=== PATIENT | male | born 1950 | race Caucasian/White ===

== ENCOUNTER 2016-05-25 13:58 | Outpatient (CLI) | payer MEDICARE, OTHER | END 2016-05-25 13:59 | disposition home or self-care (01) | DX: K92.2 Gastrointestinal hemorrhage, unspecified (principal) ==

== ENCOUNTER 2016-06-25 14:45 | Outpatient (CLI) | payer MEDICARE, OTHER | END 2016-06-25 14:46 | disposition home or self-care (01) | DX: J44.9 Chronic obstructive pulmonary disease, unspecified (principal); F32.9 Major depressive disorder, single episode, unspecified; K59.00 Constipation, unspecified; N40.1 Benign prostatic hyperplasia with lower urinary tract symptoms; R33.8 Other retention of urine; F41.9 Anxiety disorder, unspecified; Z79.891 Long term (current) use of opiate analgesic; Z99.81 Dependence on supplemental oxygen; Z79.52 Long term (current) use of systemic steroids; Z51.5 Encounter for palliative care ==

== ENCOUNTER 2016-07-09 13:15 | Outpatient (CLI) | payer MEDICARE, OTHER | END 2016-07-09 13:16 | disposition home or self-care (01) | DX: D50.9 Iron deficiency anemia, unspecified (principal) ==

== ENCOUNTER 2016-09-24 08:00 | Outpatient (CLI) | payer MEDICARE, OTHER ==
[2016-09-24 14:09] LABS: BASOPHILS # (AUTO) 0.1 10^3/uL (0.0-0.1); BASOPHILS % (AUTO) 0.6 %; EOSINOPHILS # (AUTO) 0.2 10^3/uL (0.0-0.7); EOSINOPHILS % (AUTO) 1.5 %; HCT - HEMATOCRIT 37.5 % (42.0-52.0); HGB - HEMOGLOBIN 12.1 g/dL (14.0-18.0); LYMPHOCYTES # (AUTO) 0.9 10^3/uL (1.5-3.5); LYMPHOCYTES % (AUTO) 8.3 %; MEAN CORPUSCULAR HEMOGLOBIN 27.4 pg (27.0-31.0); MEAN CORPUSCULAR HGB CONC 32.2 g/dL (32.0-36.0); MEAN PLATELET VOLUME 8.2 fL (7.4-11.4); MONOCYTES # (AUTO) 0.5 10^3/uL (0.0-1.0); MONOCYTES % (AUTO) 4.7 %; NEUTROPHILS # (AUTO) 9.7 10^3/uL (1.5-6.6); NEUTROPHILS % (AUTO) 84.9 %; RED BLOOD COUNT 4.42 10^6/uL (4.70-6.10); RED CELL DISTRIBUTION WIDTH 16.1 % (12.0-15.0); UNCORRECTED WHITE BLOOD COUNT 11.4 x10^3/uL; WHITE BLOOD COUNT 11.4 x10^3/uL (4.8-10.8)
== END 2016-09-24 08:01 ==
LOC: LAB.R 08:00
PROVIDERS: ATTEND Internal Medicine
DX: D50.9 Iron deficiency anemia, unspecified (principal)
CPT/HCPCS: 82728; 85025

== ENCOUNTER 2016-10-09 15:15 | Outpatient (CLI) | payer MEDICARE, OTHER ==
--- NOTE | 2016-10-13 06:41 | CONSULTATION NOTE ---
DATE OF CONSULTATION: 10/09/2016 00:00:00 REQUESTING PROVIDER: Dr. Panchal TIME OF VISIT: 1515 to 1600 TOPIC: Followup palliative care consult. Thank you, Dr. Panchal, for asking the palliative care consult service to provide support for your patie nt. I am seeing him in his home setting secondary to considerable taxing effort for him to leave the home, as well as provide evaluation in the context of his home environment and counseling. BRIEF HISTORY OF PRESENT ILLNESS INTERVAL UPDATE: This is a feisty 66-year-old gentleman who has antonina re end-stage COPD, oxygen dependent, with functional limitations related to his dyspnea. Overall, he has been doing a little bit better. He has baseline dyspnea; on a scale from 1 to 10, probably rates baseline about a 6/10. He is managing with his Combivent 3-4 times a day, as well as albuterol 3-4 ti mes. He uses the MS immediate release 15 mg 1-2 times a day appropriately for activity tolerance. He has continued to remain somewhat stable, much to his surprise. He does report his oxygen concentrator went out on him. He had been outside in his shop and his oxygen got down to 78%. He was fearful he w as not going to make it back to the house. We did discuss in the context of safety perhaps about gett ing a [employer]. At this point in time he remains hesitant, but will consider it. The other symptom I am following is his depression. Currently, he is on sertraline 50 mg daily. He do es feel like with good change in weather sees an improvement, using his light therapy as well as seas on change he is doing quite well. Denies any persistent or pervasive negative thoughts. He does get d iscouraged at times, but is setting regular goals and, in fact, is planning a cruise to [place]. He is looking forward to this and will need some assistance as far as managing the transition for getting oxygen orders. I have done this recently, told him to feel free to contact myself if he has any probl ems. They are considering some short trips with his RV. He does appear to be able to tolerate this because he is able to take frequent rests and pace his activities. SYMPTOM BURDEN: He continues to struggle with intermittent osteoarthritic pain, particularly with the weather changes. Says he has used some acetaminophen, is staying away from the ibuprofen because of his decreased counts blood counts and hx of GI bleed. He denies excessive fatigue. No nausea. His eleonora etite has been good. His weight has been neutral at 182. He still has some intermittent anxiety. He d oes perceive currently overall his quality of life is quite acceptable and is quite surprised that he is still here, but pleased. MEDICATION ALLERGIES 1. CODEINE. 2. POSSIBLY IRON. MEDICATIONS 1. Combivent 2 puffs q.4 hours p.r.n. 2. Omeprazole 40 mg sustained release daily. 3. Valsartan/hydrochlorothiazide 160/25 mg daily. 4. Morphine sulfate 15 mg 1 tab q.4h. p.r.n. breathlessness. 5. Ipratropium bromide/albuterol sulfate 0.5 mg/2 mg/mL with budesonide 0.25 mg 2 mL 4 times a day as needed, not currently using. 6. O2 at 3 liters continuously. 7. Tussin DM 10 mL q.4h. p.r.n. 8. Marijuana edibles p.r.n. anxiety or breathlessness. 9. Albuterol inhaler 2 puffs q.4h. p.r.n. 10. Sertraline 50 mg daily. 11. Prednisone 10 mg daily. 12. MiraLax 17 grams daily as needed. 13. Senna 2 tabs p.r.n. constipation. REVIEW OF SYSTEMS: Denies any difficulty with swallowing. Has had trouble with loose teeth. CARDIOVASCULAR: Denies any chest pain or GERD symptoms. Does have exertional dyspnea. RESPIRATORY: No change in cough or sputum production. Shortness of breath remains problematic, but co ntrolled with above current interventions. GASTROINTESTINAL: The patient uses senna every other day with good control of his constipation. GENITOURINARY: Denies any difficulty. MUSCULOSKELETAL: Does report had a little flare of gout in his right toe, took a couple extra prednis one and feels like that was addressed, he is back to his baseline and does complain of intermittent s tiffness. No weakness other than his baseline. INTEGUMENTARY: Denies any rash or skin changes. NEUROLOGIC: Denies any dizziness, memory problems, numbness, tingling. PSYCHIATRIC: As above. Does have some intermittent anxiety. ENDOCRINE: No history of hypothyroidism or diabetes. HEMATOLOGIC/IMMUNOLOGIC: His last ferritin level was 17.9 and his hemoglobin was 12.1 with hematocrit of 37.5, his white count 11.4, which is around his baseline, so it is remaining stable. His PCP requ yenyd he try and take the iron a couple of times a week. PHYSICAL EXAMINATION GENERAL: The patient is alert and voice is modulated, making good eye contact. He is joking some. He is willing to talk about his psychosocial and physical concerns, noting that he has returned to havin g his drink in the evenings daily. EYES: Normal on inspection, slight periorbital edema. ENT: His mucous membranes are moist. NECK: Trachea midline. No JVD. RESPIRATORY: His breath sounds are quite diminished throughout. No crackles, wheezes or rhonchi. CARDIOVASCULAR: His temperature is 98.8, O2 saturations on 3 liters are 96%, pulse at 72, blood press ure 132/68. ABDOMEN: Quite rounded, firm, nontender. SKIN: No signs of rash. Color is slightly pale. EXTREMITIES: No swelling noted, is able to move all of his extremities without difficulty. PALLIATIVE CARE DISCUSSION: Who was present: Myself and the patient. Counseling provided regarding fe elings of vulnerability with this episode of low sats and oxygen coming off. He does realize he is st ill living with a serious illness and that each day is something to be grateful for. He is looking fo rward to his trip with his , and some smaller outings through the summer. He does feel like his d epression is being managed currently, is able to set goals, is able to participate in household tasks as far as cooking dinner, is able to bathe, he is sleeping in his bed, and so many things that are i mproved and are satisfying to him. IMPRESSION: This is a 66-year-old gentleman with severe end-stage chronic obstructive pulmonary disea se. Currently his symptoms are controlled, with improved quality of life. Will continue his current t reatment plan both for his depression and dyspnea. RECOMMENDATIONS/COUNSELING DONE 1. Dyspnea. Reviewed the patient's current regimen and use of morphine. He is using it appropriately. Did discuss safety issues around opioid safety in the home, is able to use this as a tool for his qu ality of life. Did provide him a new prescription of MS 15 mg immediate release, 120 mg tablets. Bakari davis has been without any exacerbation and feels like he is quite grateful. 2. Depression, in remission. The patient is doing fairly well currently on his sertraline, cognitive behavioral approach, and counseling. 3. Constipation, currently controlled. The patient is taking his bowel meds appropriately. 4. Anemia, unspecified. Counseling regarding iron rich foods. TIME SPENT: Forty-five minutes with greater than 50% of this done in counseling regarding depression and anxiety management, dyspnea, and anticipatory guidance. Given his status, is doing quite well. We did agreed to meet again after his trip, it should be early December, unless he has another exacerbati on or his symptoms are worsening. JOB #: [id number] [facility] JOB #:[id number]
== END 2016-10-09 15:16 | disposition home or self-care (01) ==
LOC: PC 15:15
PROVIDERS: ATTEND Nurse Practitioner Adult Health
DX: Z51.5 Encounter for palliative care (principal); J44.9 Chronic obstructive pulmonary disease, unspecified; F32.9 Major depressive disorder, single episode, unspecified; K59.00 Constipation, unspecified; D64.9 Anemia, unspecified; F41.9 Anxiety disorder, unspecified; Z99.81 Dependence on supplemental oxygen; Z79.891 Long term (current) use of opiate analgesic; Z79.52 Long term (current) use of systemic steroids
CPT/HCPCS: 99349

== ENCOUNTER 2016-10-28 10:14 | Outpatient (CLI) | payer MEDICARE, OTHER ==
[2016-10-28 10:48] LABS: BASOPHILS # (AUTO) 0.1 10^3/uL (0.0-0.1); BASOPHILS % (AUTO) 0.9 %; EOSINOPHILS # (AUTO) 0.3 10^3/uL (0.0-0.7); EOSINOPHILS % (AUTO) 2.2 %; HCT - HEMATOCRIT 36.8 % (42.0-52.0); HGB - HEMOGLOBIN 11.9 g/dL (14.0-18.0); LYMPHOCYTES # (AUTO) 0.8 10^3/uL (1.5-3.5); LYMPHOCYTES % (AUTO) 6.7 %; MEAN CORPUSCULAR HEMOGLOBIN 27.8 pg (27.0-31.0); MEAN CORPUSCULAR HGB CONC 32.3 g/dL (32.0-36.0); MEAN CORPUSCULAR VOLUME 86.2 fL (80.0-94.0); MEAN PLATELET VOLUME 7.1 fL (7.4-11.4); MONOCYTES # (AUTO) 0.6 10^3/uL (0.0-1.0); MONOCYTES % (AUTO) 5.7 %; NEUTROPHILS # (AUTO) 9.6 10^3/uL (1.5-6.6); NEUTROPHILS % (AUTO) 84.5 %; RED BLOOD COUNT 4.26 10^6/uL (4.70-6.10); RED CELL DISTRIBUTION WIDTH 17.1 % (12.0-15.0); UNCORRECTED WHITE BLOOD COUNT 11.4 x10^3/uL; WHITE BLOOD COUNT 11.4 x10^3/uL (4.8-10.8)
== END 2016-10-28 10:15 | disposition home or self-care (01) ==
LOC: LAB 10:14
PROVIDERS: ATTEND Internal Medicine
DX: K92.1 Melena (principal)
CPT/HCPCS: 36415; 85025; 86850; 86900; 86901

== ENCOUNTER 2016-10-30 08:02 | Outpatient (CLI) | payer MEDICARE, OTHER ==
[2016-10-30 08:24] LABS: BASOPHILS # (AUTO) 0.1 10^3/uL (0.0-0.1); BASOPHILS % (AUTO) 1.4 %; EOSINOPHILS # (AUTO) 0.5 10^3/uL (0.0-0.7); EOSINOPHILS % (AUTO) 5.5 %; HCT - HEMATOCRIT 37.2 % (42.0-52.0); HGB - HEMOGLOBIN 12.1 g/dL (14.0-18.0); LYMPHOCYTES # (AUTO) 1.6 10^3/uL (1.5-3.5); LYMPHOCYTES % (AUTO) 17.7 %; MEAN CORPUSCULAR HEMOGLOBIN 27.9 pg (27.0-31.0); MEAN CORPUSCULAR HGB CONC 32.5 g/dL (32.0-36.0); MEAN CORPUSCULAR VOLUME 85.9 fL (80.0-94.0); MEAN PLATELET VOLUME 7.3 fL (7.4-11.4); MONOCYTES # (AUTO) 1.1 10^3/uL (0.0-1.0); MONOCYTES % (AUTO) 11.6 %; NEUTROPHILS # (AUTO) 5.8 10^3/uL (1.5-6.6); NEUTROPHILS % (AUTO) 63.8 %; RED BLOOD COUNT 4.33 10^6/uL (4.70-6.10); UNCORRECTED WHITE BLOOD COUNT 9.1 x10^3/uL; WHITE BLOOD COUNT 9.1 x10^3/uL (4.8-10.8)
== END 2016-10-30 08:03 | disposition home or self-care (01) ==
LOC: LAB 08:02
PROVIDERS: ATTEND Internal Medicine
DX: K92.2 Gastrointestinal hemorrhage, unspecified (principal)
CPT/HCPCS: 36415; 85025

== ENCOUNTER 2017-01-05 16:00 | Outpatient (CLI) | payer MEDICARE, OTHER ==
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
== END 2017-01-05 16:01 | disposition home or self-care (01) ==
LOC: PC 16:00
PROVIDERS: ATTEND Nurse Practitioner Adult Health
DX: Z51.5 Encounter for palliative care (principal); J44.1 Chronic obstructive pulmonary disease with (acute) exacerbation; F32.9 Major depressive disorder, single episode, unspecified; F41.9 Anxiety disorder, unspecified; K59.03 Drug induced constipation; T40.2X5A Adverse effect of other opioids, initial encounter; Z99.81 Dependence on supplemental oxygen; Z79.891 Long term (current) use of opiate analgesic; Z66 Do not resuscitate
CPT/HCPCS: 99349

== ENCOUNTER 2017-01-25 12:29 | Outpatient (CLI) | payer MEDICARE, OTHER ==
[2017-01-25 13:06] LABS: BASOPHILS # (AUTO) 0.1 10^3/uL (0.0-0.1); BASOPHILS % (AUTO) 1.2 %; EOSINOPHILS # (AUTO) 0.2 10^3/uL (0.0-0.7); EOSINOPHILS % (AUTO) 1.9 %; HCT - HEMATOCRIT 36.5 % (42.0-52.0); HGB - HEMOGLOBIN 11.6 g/dL (14.0-18.0); LYMPHOCYTES # (AUTO) 0.7 10^3/uL (1.5-3.5); LYMPHOCYTES % (AUTO) 6.2 %; MEAN CORPUSCULAR HEMOGLOBIN 26.7 pg (27.0-31.0); MEAN CORPUSCULAR HGB CONC 31.7 g/dL (32.0-36.0); MEAN CORPUSCULAR VOLUME 84.1 fL (80.0-94.0); MEAN PLATELET VOLUME 7.1 fL (7.4-11.4); MONOCYTES # (AUTO) 0.6 10^3/uL (0.0-1.0); MONOCYTES % (AUTO) 5.7 %; NEUTROPHILS # (AUTO) 9.4 10^3/uL (1.5-6.6); RED BLOOD COUNT 4.34 10^6/uL (4.70-6.10)
[2017-01-25 13:26] LABS: CALCIUM 9.3 mg/dL (8.5-10.3); CREATININE 1.1 mg/dL (0.6-1.2); POTASSIUM 3.8 mmol/L (3.5-5.0)
== END 2017-01-25 12:30 | disposition home or self-care (01) ==
LOC: LAB 12:29
PROVIDERS: ATTEND Internal Medicine
DX: K92.2 Gastrointestinal hemorrhage, unspecified (principal); J44.9 Chronic obstructive pulmonary disease, unspecified
CPT/HCPCS: 36415; 80048; 82728; 85025

== ENCOUNTER 2017-04-28 08:00 | Outpatient (CLI) | payer MEDICARE, OTHER ==
[2017-04-28 20:26] LABS: BASOPHILS # (AUTO) 0.1 10^3/uL (0.0-0.1); EOSINOPHILS # (AUTO) 0.3 10^3/uL (0.0-0.7); EOSINOPHILS % (AUTO) 4.1 %; HCT - HEMATOCRIT 41.4 % (42.0-52.0); HGB - HEMOGLOBIN 13.1 g/dL (14.0-18.0); LYMPHOCYTES # (AUTO) 1.3 10^3/uL (1.5-3.5); LYMPHOCYTES % (AUTO) 15.8 %; MEAN CORPUSCULAR HEMOGLOBIN 28.9 pg (27.0-31.0); MEAN CORPUSCULAR HGB CONC 31.7 g/dL (32.0-36.0); MEAN CORPUSCULAR VOLUME 91.3 fL (80.0-94.0); MEAN PLATELET VOLUME 8.1 fL (7.4-11.4); MONOCYTES # (AUTO) 0.9 10^3/uL (0.0-1.0); MONOCYTES % (AUTO) 10.9 %; NEUTROPHILS # (AUTO) 5.7 10^3/uL (1.5-6.6); NEUTROPHILS % (AUTO) 68.2 %; NUCLEATED RED BLOOD CELLS AUTO 0.1 /100WBC; RED BLOOD COUNT 4.54 10^6/uL (4.70-6.10); UNCORRECTED WHITE BLOOD COUNT 8.4 x10^3/uL; WHITE BLOOD COUNT 8.4 x10^3/uL (4.8-10.8)
== END 2017-04-28 08:01 | disposition home or self-care (01) ==
LOC: LAB.R 08:00
PROVIDERS: ATTEND Internal Medicine
DX: K92.2 Gastrointestinal hemorrhage, unspecified (principal)
CPT/HCPCS: 82728; 85025

== ENCOUNTER 2017-06-28 15:45 | Outpatient (CLI) | payer MEDICARE, OTHER ==
--- NOTE | 2017-06-28 20:49 | CONSULTATION NOTE ---
Palliative Care Follow Up - Referral Referring Provider: Dr. Panchal Time of Visit: [id number] Referral setting: Home (Patient seen in her home setting seconds considerable and taxing effort for the patient leave the home secondary to his severe dyspnea and poor activity tolerance) Referral Reason: Advanced COPD/Depression - Information Sources Records reviewed: Previous records reviewed History/Review of Systems obtained from: Patient, Family (Petrona joined us for the visit) Exam limitations: No limitations - History of Present Illness Update Brief HPI Update: This is a ronald 67-year-old gentleman with advanced COPD, who is oxygen dependent, with noted functional limitations related to his dyspnea. He continues to have fluctuating status as far as his shortness of breath, good and bad days, and intermittent panic attacks. These have dramatically improved though, patient is managing both his anxiety and his dyspnea with the use of as needed morphine sulfate 15 mg tablets. He is finding taking it at about 2 AM when he gets up to the bathroom, this is when he gets quite distressed, and then again around 9 or 10 to be able to bathe appears to be a good pattern. On his states that he is not feeling quite as well he does take a third tablet with good relief. He currently is remaining weight neutral between 1 7172. His biggest complaint is been an increase in intermittent constipation. He is currently off the iron as he was unable to tolerate it, his ferritin in April was 28.4. He has not had any episodes of flu or cold this winter, and when he is feeling better he does get out in his truck and goes with many on [place] this is maybe once or twice a month. For management of his COPD he continues on the prednisone 10 mg daily, he is using the Combivent 3-4 times a day, supplemented by albuterol 2 puffs about 3 times a day. He is only using the nebulizer with the Pulmicort and L sputum well about 1 time a day. Overall he feels satisfied with his current quality of life, and feels his depression is currently controlled. Social History - Living Situation Living arrangement: At home Living Situation: With spouse/s.o. (Petrona is his main support, she does work during the day, she tries to be flexible though if he is having a bad day. She herself is getting ready for surgery and will need some time off related to this. He is hoping he can be supportive of her during this time.) Medications/Allergies - Medications Home Medications: Ambulatory Orders Medication Instructions Recorded Confirmed Ipratropium/Albuterol [Combivent 2 puffs IH Q4H PRN 06/17/14 06/28/17 Respimat] Morphine Ir [Ms Ir] 15 mg PO Q4HR PRN 03/15/16 06/28/17 Sertraline [Zoloft] 50 mg PO DAILY 03/15/16 06/28/17 Budesonide [Pulmicort] 0.5 mg NEB DAILY 03/16/16 06/28/17 Valsartan/Hydrochlorothiazide 160.25 mg PO DAILY 03/16/16 06/28/17 [Diovan Hct 160-25 mg Tablet] predniSONE [Deltasone] 10 mg PO DAILYWM 03/16/16 06/28/17 traZODone [Desyrel] 50 mg PO HS 03/16/16 06/28/17 Albuterol Sulf [Ventolin Hfa 2 puffs INH Q4HR PRN 01/05/17 06/28/17 Inhaler] Dextromethorphan HBr [Tussin Cough] 10 ml PO Q4HR PRN 01/05/17 06/28/17 Esomeprazole Magnesium [Nexium] 40 mg PO DAILY 01/05/17 06/28/17 Ipratropium/Albuterol Sulfate 1 amp INH TID PRN 01/05/17 06/28/17 [Iprat-Albut 0.5-3(2.5) mg/3 ml] Polyethylene Glycol 3350 [Miralax] 17 gm PO DAILY PRN 01/05/17 06/28/17 Senna [Senokot] 17.2 gm PO BID 01/05/17 06/28/17 - Allergies Allergies/Adverse Reactions: Allergies Allergy/AdvReac Type Severity Reaction Status Date / Time codeine AdvReac Unknown Verified 04/01/16 13:16 Review of Systems - Constitutional Constitutional: reports: Fatigue, Weight stable (170-172) - Ears, Nose & Throat Ears, Nose & Throat: reports: Hearing loss (mild), Postnasal drainage, Dental decay - Cardiovascular Cardiovascular: reports: Exertional dyspnea, Decr. exercise tolerance. denies: Chest pain - Respiratory Respiratory: reports: Wheezing (intermittent), SOB at rest, SOB with exertion - Gastrointestinal Gastrointestinal: reports: Constipation, Good appetite. denies: Rectal bleeding , Black stools, Nausea, Reflux/heartburn - Genitourinary Genitourinary: denies: Incontinence - Musculoskeletal Musculoskeletal: reports: Muscle aches, Stiffness, Limited range of motion ( shoulders) - Integumentary Integumentary: reports: Lesions (psoriasis good control currently), Dryness - Neurological Neurological: reports: General weakness - Psychiatric Psychiatric: reports: Depression (well controlled currently), Anxiety (less panic attacks down 2-3 x month) - Endocrine Endocrine: reports: Other (reports intermittent hot flashes/sweating-notes no pattern currently) - Hematologic/Lymphatic Hematologic/Lymphatic: reports: Anemia (improved). denies: Recurrent infections - All Other Systems All Other Systems: reports: Reviewed and negative Physical Exam - Vital Signs Temperature: 98.4 C Pulse Rate: 69 Respiratory Rate: 20 O2 Saturation: 96 (on 3 liters) Blood Pressure: 142/74 - Physical Exam General Appearance: positive: No acute distress, Alert Eyes Bilateral: positive: Normal inspection ENT: positive: No signs of dehydration Neck: positive: No JVD, Trachea midline Cardiovascular: positive: Regular rate & rhythm Respiratory: positive: Diminished throughout, Other (right base decreased;). negative: Wheezes, Rales, Rhonchi Abdomen: positive: Soft, Nml bowel sounds Skin: positive: Pallor, Dryness Extremities: positive: No pedal edema Neurologic/Psychiatric: positive: Oriented x3, Mood/affect nml Palliative Care - POLST Patient has POLST: Yes POLST Status: DNR, Selective Treatment Pain: Pain unchanged, Location (diffuse joint pain; right toe continues to "flare") Tiredness/Fatigue: Moderate (4-6) Drowsiness/Sedation: Mild (1-3) Nausea: None Depression: None Anxiety: Mild (1-3) Dyspnea: Moderate (4-6) Anorexia: None Sleep: Variable sleep pattern Constipation: Yes, Opoid induced, Unmanaged Feelings of wellbeing/Perceived Quality of Life: Good, Acceptable, No change Performance Status: She remains mostly housebound, spends quite a bit of time sitting in the recliner, he is able to do some household tasks. He is currently able to bathe himself independently. I put him at a PPS of 50% - Palliative Care Discussion: Patient feeling quite positive, feels quality of life is acceptable, still has some fluctuating days including "bad days". Both are anxious with Petrona is pending surgery, patient is hoping to be able to provide support. Most of their family is in [place]. Patient has set a goal to take a [place] cruise again in October, this is something that helps him get through the sanderson days. He does feel like using his light box and his current dosing of antidepressant his depression is acceptable. At this point in time relocating to [place] is put on hold pending outcome of [place] surgeries etc. Results - Lab Results Lab results reviewed: Yes Impression and Recommendations - Palliative Care Impression: This is a ronald 67 gentleman who has advanced COPD, has fluctuating good and bad days, currently feels his quality of life is adequate, and his symptom burden low. He does present today with constipation. Palliative care support will continue benefiting from ongoing monitoring and counseling. Will continue to follow until patient appropriate the transition to hospice. Recommendations/Counseling Done: 1. Depression. Patient is currently being managed on his sertraline 50 mg daily and use of his light box. No further adjustments needed today. 2. Constipation. Patient counseled to not take Epson salts with constipation, he is currently only taking senna 2 tabs daily, patient's bowel movements are soft, instructed to take 2 tabs twice daily, with the goal to have a regular bowel movement every day particularly in light of patient's history of rectal bleeding. Patient denies any signs or symptoms of bleeding or hemorrhoids. 3. Advanced COPD. Patient is at high risk for exacerbation and/or recurrent pneumonia. He currently is being managed without any sequela his last few months, he does present as managing appropriately on his current morphine, RX provided for MS 15 mg 1 tab every four hours ad need for acute breathlessness # 120. 4. Advanced care planning. Patient does have YENI ST in place as well as identified Petrona as DPO a. Patient has set a goal for [place] this summer, continues to manage, without any acute infection or decline currently. Will continue to provide palliative care support for symptom management and counseling. Time Spent: 30 minutes with greater than 50% of this regarding counseling regarding symptom management, anticipatory guidance, and family support/counseling with and patient
== END 2017-06-28 15:46 | disposition home or self-care (01) ==
LOC: PC 15:45
PROVIDERS: ATTEND Nurse Practitioner Adult Health
DX: Z51.5 Encounter for palliative care (principal); J44.9 Chronic obstructive pulmonary disease, unspecified; K59.00 Constipation, unspecified; F32.9 Major depressive disorder, single episode, unspecified; D64.9 Anemia, unspecified; Z66 Do not resuscitate
CPT/HCPCS: 99348

== ENCOUNTER 2017-07-15 16:57 | Outpatient (CLI) | payer MEDICARE, OTHER | END 2017-07-15 16:58 | disposition EMS.NT | LOC: EMS 16:57 | PROVIDERS: ATTEND Surgery | DX: M54.2 Cervicalgia (principal); V59.40XA Driver of pick-up truck or van injured in collision with unspecified motor vehicles in traffic accident, initial encounter; Y92.413 State road as the place of occurrence of the external cause ==

== ENCOUNTER 2017-09-01 13:30 | Outpatient (CLI) | payer MEDICARE, OTHER ==
[2017-09-01 13:45] LABS: BASOPHILS # (AUTO) 0.1 10^3/uL (0.0-0.1); BASOPHILS % (AUTO) 0.7 %; EOSINOPHILS # (AUTO) 0.3 10^3/uL (0.0-0.7); HGB - HEMOGLOBIN 13.5 g/dL (14.0-18.0); LYMPHOCYTES # (AUTO) 0.9 10^3/uL (1.5-3.5); LYMPHOCYTES % (AUTO) 8.2 %; MEAN CORPUSCULAR HEMOGLOBIN 30.6 pg (27.0-31.0); MEAN CORPUSCULAR HGB CONC 33.2 g/dL (32.0-36.0); MONOCYTES # (AUTO) 0.7 10^3/uL (0.0-1.0); MONOCYTES % (AUTO) 6.4 %; NEUTROPHILS # (AUTO) 9.2 10^3/uL (1.5-6.6); NEUTROPHILS % (AUTO) 81.7 %; PLT - PLATELET COUNT 286 10^3/uL (130-450); RED BLOOD COUNT 4.41 10^6/uL (4.70-6.10); RED CELL DISTRIBUTION WIDTH 14.8 % (12.0-15.0); WHITE BLOOD COUNT 11.2 x10^3/uL (4.8-10.8)
[2017-09-01 13:57] LABS: ALBUMIN 4.6 g/dL (3.2-5.5); ALBUMIN/GLOBULIN RATIO 1.5 (1.0-2.2); BILIRUBIN,TOTAL 0.7 mg/dL (0.2-1.0); CALCIUM 9.2 mg/dL (8.5-10.3); CREATININE 0.9 mg/dL (0.6-1.2); TOTAL PROTEIN 7.7 g/dL (6.7-8.2)
== END 2017-09-01 13:31 | disposition home or self-care (01) ==
LOC: LAB 13:30
PROVIDERS: ATTEND Internal Medicine
DX: I10 Essential (primary) hypertension (principal); Z79.899 Other long term (current) drug therapy; K92.2 Gastrointestinal hemorrhage, unspecified
CPT/HCPCS: 36415; 80053; 84443; 85025

== ENCOUNTER 2017-09-08 15:45 | Outpatient (CLI) | payer MEDICARE, OTHER ==
--- NOTE | 2017-09-09 06:28 | CONSULTATION NOTE ---
Palliative Care Follow Up - Referral Referring Provider: Dr. Mat Panchal Time of Visit: Friday 09/08 [id number] Referral setting: Home (This is a taxing considerable effort for the patient leave the home secondary to advanced COPD and also to facilitate family conference) Referral Reason: Advanced COPD - Information Sources Records reviewed: Previous records reviewed History/Review of Systems obtained from: Patient, Family ( Petrona present for visit) Exam limitations: No limitations - History of Present Illness Update Brief HPI Update: This is a ronald 67-year-old gentleman with advanced COPD, who is oxygen dependent, with functional limitations related to his dyspnea. He continues have fluctuating status, most recently exacerbation of shortness of breath, fatigue, and depression. Had increased his sertraline, did follow-up with his PCP regarding follow-up with labs, those are within normal limits, though he did have an elevated white count. Patient did self treat with increased dose of prednisone, this improved his wheezing and tightness, his mood is been improved as well. Today I find him with elevated mood, conversant, willing to share his concerns regarding anxiety, depression, and breathlessness. Is setting goals for this summer, does have some sinus congestion responding to psychotropic, lungs are diminished throughout, without wheezes, vital signs are stable. Social History - Living Situation Living arrangement: At home Living Situation: With spouse/s.o. (Petrona works during the day, patient is somewhat isolated has ronald dog Mayra whom keeps him company) Medications/Allergies - Medications Home Medications: Ambulatory Orders Medication Instructions Recorded Confirmed Ipratropium/Albuterol [Combivent 2 puffs IH Q4H PRN 06/17/14 09/09/17 Respimat] Morphine Ir [Ms Ir] 15 mg PO Q4HR PRN 03/15/16 09/09/17 Sertraline [Zoloft] 75 mg PO DAILY 03/15/16 09/09/17 Budesonide [Pulmicort] 0.5 mg NEB DAILY 03/16/16 09/09/17 Valsartan/Hydrochlorothiazide 160.25 mg PO DAILY 03/16/16 09/09/17 [Diovan Hct 160-25 mg Tablet] predniSONE [Deltasone] 20 mg PO DAILYWM 03/16/16 09/09/17 traZODone [Desyrel] 50 mg PO HS 03/16/16 09/09/17 Albuterol Sulf [Ventolin Hfa 2 puffs INH Q4HR PRN 01/05/17 09/09/17 Inhaler] Dextromethorphan HBr [Tussin Cough] 10 ml PO Q4HR PRN 01/05/17 09/09/17 Esomeprazole Magnesium [Nexium] 40 mg PO DAILY 01/05/17 09/09/17 Ipratropium/Albuterol Sulfate 1 amp INH TID PRN 01/05/17 09/09/17 [Iprat-Albut 0.5-3(2.5) mg/3 ml] Polyethylene Glycol 3350 [Miralax] 17 gm PO DAILY PRN 01/05/17 09/09/17 Senna [Senokot] 17.2 gm PO BID PRN 01/05/17 09/09/17 Cetirizine [ZyrTEC] 10 mg PO DAILY 09/09/17 09/09/17 - Allergies Allergies/Adverse Reactions: Allergies Allergy/AdvReac Type Severity Reaction Status Date / Time codeine AdvReac Unknown Verified 04/01/16 13:16 Review of Systems - Constitutional Constitutional: reports: Fatigue (reports increase tiredness for 2-3 weeks; had followed up with Dr. Panchal for labs with anemia stable), Weight stable (167-170) - Eyes Eyes: reports: Vision loss - Ears, Nose & Throat Ears, Nose & Throat: reports: Hearing loss (mild), Nasal congestion (using zytrec with relief; reports increased sinus pressure and congestion with increase pollen count) - Cardiovascular Cardiovascular: reports: Exertional dyspnea, Decr. exercise tolerance. denies: Chest pain - Respiratory Respiratory: reports: Cough (intermittent; dry), SOB with exertion - Gastrointestinal Gastrointestinal: reports: Good appetite ("too good" reviewed increased prednisone most likely culprit). denies: Constipation (managing bowel program) , Rectal bleeding, Black stools, Nausea - Genitourinary Genitourinary: reports: Urgency - Musculoskeletal Musculoskeletal: reports: Muscle aches, Stiffness, Joint pain (intermittent influenced by weather) - Integumentary Integumentary: reports: Dryness - Neurological Neurological: reports: Headache (with sinus pressure) - Psychiatric Psychiatric: reports: Depression (had spoken with patient 08/30 regarding increased symptoms of depression/anxiety patient had increased sertraline to 75 mg per instruction; some benefit and improvement in mood along with better weather and improved function with prednisone "boost") - Hematologic/Lymphatic Hematologic/Lymphatic: reports: Anemia (mild/recent labs good), Recurrent infections (09/01 WBC slightly elevated 11.2 neuts 9.2; patient did not self medicate with AB but did increase prednisone to 20 mg from 10 mg daily with improvement of SOB/wheezing/and energy. Patient "self" regulates reports last dose at 20 mg is tomorrow.) - All Other Systems All Other Systems: reports: Reviewed and negative Physical Exam - Vital Signs Temperature: 97.8 C Pulse Rate: 72 Respiratory Rate: 18 O2 Saturation: 92 (3 liters) Blood Pressure: 132/72 - Physical Exam General Appearance: positive: No acute distress, Alert Eyes Bilateral: positive: Normal inspection ENT: positive: No signs of dehydration Neck: positive: No JVD, Trachea midline Cardiovascular: positive: Regular rate & rhythm Respiratory: positive: Diminished throughout. negative: Wheezes, Rales, Rhonchi Abdomen: positive: Non-tender, Soft, Nml bowel sounds Skin: positive: Dryness Extremities: positive: No pedal edema Neurologic/Psychiatric: positive: Oriented x3, Mood/affect nml Palliative Care - POLST Patient has POLST: Yes POLST Status: DNR, Selective Treatment Pain: Pain unchanged, Location (joint pain; fluctuates) Tiredness/Fatigue: Moderate (4-6) Drowsiness/Sedation: Mild (1-3) Nausea: None Depression: Moderate (4-6) Anxiety: Moderate (4-6) (does describe intermittent panic attacks; less with use of morphine but did have one a couple of weeks ago; very frightening for patient) Dyspnea: Moderate (4-6) (improved back down to 1-2 MS IR 15 mg from 2-3 last week) Anorexia: None Sleep: Variable sleep pattern Constipation: Yes, Opoid induced, Managed Feelings of wellbeing/Perceived Quality of Life: Fair, Acceptable Performance Status: Patient had been more sedentary particularly over winter with cold weather, is looking forward to the nicer weather and being able to do more things. Patient is able to ambulate around home, is limited by his dyspnea. He does have decreased activity tolerance but is independent in his ADLs. They are hoping to plan for a cruise this October, as well as several RV camping trips. - Palliative Care Discussion: Patient does appear to have had exacerbation of his COPD a couple weeks ago, is on prednisone 20 mg daily with some improvement, also had an exacerbation of his depression. 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 and patient are sitting goals, patient remains fairly isolated, but having new dog that has really brightened his days. Results - Lab Results Lab results reviewed: Yes Impression and Recommendations - Palliative Care Impression: This is a 67-year-old gentleman with advanced COPD, with recent exacerbation of his COPD and depression. Currently is improving, though continues to have slow decline, but is still quite satisfied with his current quality of life. Palliative care support continue ongoing monitoring, and counseling for support. Recommendations/Counseling Done: 1.COPD. Patient with recent exacerbation, patient self managed with increased prednisone to 20 mg daily, this is about to be completed. Did review important to follow-up with PCP/palliative care if exacerbation of symptoms to weigh benefits and burdens of self treating with prednisone and/or antibiotics. If patient's breathlessness does not improve, can follow-up with checks x-ray if needed. Patient did not take antibiotics. #2 depression. Patient with recent exacerbation, has increased sertraline to 75 mg per instruction. Does feel improved with the weather, may be early yet to see benefit from increase sertraline but will continue to monitor. Patient without increased side effects. 3. Anxiety. Counseling regarding panic attacks, implementation of relaxation techniques, and etiology. Patient has had less frequency of this, but is quite overwhelmed by them. 4. Advanced care planning. Patient does have Y[facility]I ST in place, is setting goals for this summer with cruise in October. He is hoping for enough energy and support to be able to do intermittent camping trips as well. Time Spent: 30 minutes with greater than 50% of this done in counseling regarding management of COPD, depression, anxiety and anticipatory guidance
== END 2017-09-08 15:46 | disposition home or self-care (01) ==
LOC: PC 15:45
PROVIDERS: ATTEND Nurse Practitioner Adult Health
DX: Z51.5 Encounter for palliative care (principal); J44.9 Chronic obstructive pulmonary disease, unspecified; F32.9 Major depressive disorder, single episode, unspecified; F41.8 Other specified anxiety disorders; F41.0 Panic disorder [episodic paroxysmal anxiety]; Z99.81 Dependence on supplemental oxygen; Z79.891 Long term (current) use of opiate analgesic; Z79.51 Long term (current) use of inhaled steroids; Z79.52 Long term (current) use of systemic steroids; Z66 Do not resuscitate
CPT/HCPCS: 99348

== ENCOUNTER 2017-11-26 12:45 | Outpatient (CLI) | payer MEDICARE, OTHER ==
--- NOTE | 2017-11-26 15:06 | CONSULTATION NOTE ---
Palliative Care Follow Up - Referral Referring Provider: Dr. Mat Panchal Time of Visit: [id number] Referral setting: Home (There is a taxing considerable effort for the patient leave the home secondary to his severe dyspnea and advanced COPD) Referral Reason: [id number] - Information Sources Records reviewed: Previous records reviewed History/Review of Systems obtained from: Patient Exam limitations: No limitations - History of Present Illness Update Brief HPI Update: This is a 67-year-old gentleman with advanced COPD, who is oxygen dependent, with moderate to severe functional limitations related to his dyspnea. He does continue to have fluctuating status, most recently he had been on his [place] cruise, this is been sending been looking forward to. Unfortunately did find his breathlessness, he was feeling quite stressed, and was not feeling well at the time he got home. Over the weekend he did experience a right muscle strain on his friend with some chest discomfort, point tenderness on exam, does not appear to be broken ribs but muscular in origin. Reports on Wednesday he had some problems with his RV, the air conditioning was not working, and was wondering if he did not experience some heat stroke. He also had an exacerbation of his COPD, with increased shortness of breath, denies cough or colored sputum, did himself increase from prednisone 10 mg up to 20 mg, had had a conversation with him yesterday regarding his severity of symptoms and recommended ED evaluation. He took a nap and when he woke up he was feeling somewhat better. We did agree to visit today though for examination. He remains at high risk for recurrent exacerbations and/or/pneumonia. He has had actually done fairly well over the last several months. On exam patient is diminished throughout, but no wheezing, crackles, or rhonchi. His O2 sats are in acceptable range for patient. He does perceive he is improving. He has not increased his inhaler use, he does use his Combivent about 3 times a day, his budineside neb daily, and Albuterol about 3 times a day. He has also using the morphine 50 mg immediate relief about 3 times a day with good relief, during this time. He had increase it up to about 4 times a day. He is present, cooperative, engaged in conversation making good eye contact, does not present with respiratory distress or effort at that visit. Social History - Living Situation Living arrangement: At home Living Situation: With spouse/s.o. Support System: Petrona works full-time, she did stay home yesterday because patient was feeling so poorly. Patient does remain quite isolated, has a ronald dog, and is looking forward to having his RV fixed to be able to do some camping. He reports he just likes to sit in the quiet. Medications/Allergies - Medications Home Medications: Ambulatory Orders Medication Instructions Recorded Confirmed Ipratropium/Albuterol [Combivent 2 puffs IH Q4H PRN 06/17/14 11/26/17 Respimat] Morphine Ir [Ms Ir] 15 mg PO Q4HR PRN 03/15/16 11/26/17 Sertraline [Zoloft] 75 mg PO DAILY 03/15/16 11/26/17 Budesonide [Pulmicort] 0.5 mg NEB DAILY 03/16/16 11/26/17 Valsartan/Hydrochlorothiazide 160.25 mg PO DAILY 03/16/16 11/26/17 [Diovan Hct 160-25 mg Tablet] predniSONE [Deltasone] 20 mg PO DAILYWM 03/16/16 11/26/17 traZODone [Desyrel] 50 mg PO HS 03/16/16 11/26/17 Albuterol Sulf [Ventolin Hfa 2 puffs INH Q4HR PRN 01/05/17 11/26/17 Inhaler] Dextromethorphan HBr [Tussin Cough] 10 ml PO Q4HR PRN 01/05/17 11/26/17 Esomeprazole Magnesium [Nexium] 40 mg PO DAILY 01/05/17 11/26/17 Ipratropium/Albuterol Sulfate 1 amp INH TID PRN 01/05/17 11/26/17 [Iprat-Albut 0.5-3(2.5) mg/3 ml] Polyethylene Glycol 3350 [Miralax] 17 gm PO DAILY PRN 01/05/17 11/26/17 Senna [Senokot] 17.2 gm PO BID PRN 01/05/17 11/26/17 Cetirizine [ZyrTEC] 10 mg PO DAILY 09/09/17 11/26/17 - Allergies Allergies/Adverse Reactions: Allergies Allergy/AdvReac Type Severity Reaction Status Date / Time codeine AdvReac Unknown Verified 04/01/16 13:16 Review of Systems - Constitutional Constitutional: reports: Fatigue, Weight loss (had lost 8 pounds since back from trip/has regained 4 of 8). denies: Fever - Eyes Eyes: reports: Vision loss - Ears, Nose & Throat Ears, Nose & Throat: reports: Hearing loss (mild), Nasal congestion, Dry mouth - Cardiovascular Cardiovascular: reports: Chest pain (not cardiac in nature; pulled muscle right breast area), Exertional dyspnea, Decr. exercise tolerance. denies: Edema - Respiratory Respiratory: reports: SOB at rest, SOB with exertion. denies: Cough, Sputum production - Gastrointestinal Gastrointestinal: reports: Abdominal distention, Good appetite. denies: Constipation, Nausea - Genitourinary Genitourinary: reports: Urgency - Musculoskeletal Musculoskeletal: reports: Muscle pain (right upper breast/throcic pain had occured when "pounding in garden stakes"), Muscle weakness - Integumentary Integumentary: reports: Pruritis - Neurological Neurological: reports: General weakness - Psychiatric Psychiatric: reports: Depression (reports had exacerbation on trip; felt stressed; previous had been doing well) - All Other Systems All Other Systems: reports: Reviewed and negative Physical Exam - Vital Signs Temperature: 97.6 C Pulse Rate: 62 Respiratory Rate: 20 O2 Saturation: 96 (3 liters at rest) Blood Pressure: 142/70 - Physical Exam General Appearance: positive: No acute distress, Alert Eyes Bilateral: positive: Normal inspection ENT: positive: No signs of dehydration Neck: positive: No JVD, Trachea midline Cardiovascular: positive: Regular rate & rhythm Respiratory: positive: Diminished throughout. negative: Wheezes, Rales, Rhonchi Abdomen: positive: Soft, Nml bowel sounds, Distended Skin: positive: Dryness Extremities: positive: No pedal edema, Other (point tenderness on palpation around the right breast area; no separation of rib;swelling or mass appreciated) Neurologic/Psychiatric: positive: Oriented x3, Mood/affect nml, Weakness Palliative Care - POLST Patient has POLST: Yes POLST Status: DNR, Selective Treatment Pain: No pain Tiredness/Fatigue: Moderate (4-6) Drowsiness/Sedation: None Nausea: None Depression: Mild (1-3) Anxiety: Moderate (4-6) Dyspnea: Moderate (4-6) Anorexia: Mild (1-3) Sleep: Sleeps well Constipation: Yes, Opoid induced, Managed Feelings of wellbeing/Perceived Quality of Life: Fair, Acceptable, No change Performance Status: Patient remains very limited in his activity tolerance, can ambulate short distances, though when traveling for longer distances needs assistance. He is able to still shower, though has to pace himself with his energy. He is doing some meal prep, but does spend the majority of his time in his recliner. With his recent exacerbation he was much more limited in finding he was sleeping more - Palliative Care Discussion: Patient still perceives he has good quality of life, though he does have Limited activity tolerance. He had felt back in October 2015 when he met that he was at end-of-life, he is still finding things that make life worth living, and has improved as far as his overall symptom burden. He can identify stressors that have added to his recent exacerbation, things had not quite gotten as he had hoped are planned for his vacation, he is looking forward to getting his RV repaired and camping in the future. Counseling done to normalize normal grief and loss process, patient does feel vulnerable to exacerbations, but is not distressed. Impression and Recommendations - Palliative Care Impression: This is a 67-year-old with an exacerbation of COPD, this is multi-factorial in origin including increased stressors, most likely heat exhaustion, and now with right anterior thoracic muscle pull. Patient appears stable at time of visit, did review need to call sooner and process. Palliative care to continue to provide support for symptom management. Recommendations/Counseling Done: 1. COPD exacerbation. Patient did increase his prednisone 10 mg to 20 mg daily , instructed to continue through until next Wednesday. Also encouraged to increase use of nebulizer if starting to feel wheezy. We also discussed signs and symptoms that needed further follow-up, currently does appear stable though. 2. Dyspnea. Did review the use of the morphine 15 mg immediate release, his baseline uses 2-3 tabs in 24 hours, with exacerbation was up to 3-4 tabs. Counseling again regarding safety, new prescription provided, and strategies how best to use it as a "tool in the toolbox". 3. Abdominal bloating. Patient does report increased gas last few weeks, is using Gas-X. Reports he is having regular BMs, no signs or symptoms of bleeding or hard stool. 4. Depression. Patient does feel currently controlled with improvement at the new dosing at 75 mg from last adjustment. Patient does admit to feeling stressed with his recent trip, there was quite a bit of chaos going on, patient does better in a calm environment. Encouraged to continue to set goals including camping in his RV, just to paces himself, he is going to pick someplace close he says. 5. advanced care planning. YENI ST in place, patient without any other existential or serious concerns. Will continue to monitor for decline. Does not want to be in hospital if possible. Time Spent: Minutes with greater than 50% of this done in counseling and evaluation of his acute exacerbation, is doing much better. Anticipatory guidance provided
== END 2017-11-26 12:46 | disposition home or self-care (01) ==
LOC: PC 12:45
PROVIDERS: ATTEND Nurse Practitioner Adult Health
DX: Z51.5 Encounter for palliative care (principal); J44.1 Chronic obstructive pulmonary disease with (acute) exacerbation; R14.0 Abdominal distension (gaseous); F32.9 Major depressive disorder, single episode, unspecified; S29.011A Strain of muscle and tendon of front wall of thorax, initial encounter; X50.3XXA Overexertion from repetitive movements, initial encounter; Z66 Do not resuscitate; Z99.81 Dependence on supplemental oxygen; Z79.899 Other long term (current) drug therapy; Z79.891 Long term (current) use of opiate analgesic; Z79.51 Long term (current) use of inhaled steroids
CPT/HCPCS: 99348

== ENCOUNTER 2017-12-07 12:23 | Outpatient (CLI) | payer MEDICARE, OTHER ==
--- NOTE | 2017-12-07 13:40 | XRAY Report ---
Procedure Date: 12/07/2017 Accession Number: [id number] / [id number] Procedure: XR - Chest 3 View X-Ray CPT Code: 42988 FULL RESULT: EXAM: Chest 3 View X-Ray DATE: 12/07/2017 1:22 PM CLINICAL HISTORY: RIB PAIN RIGHT SIDED COMPARISON: Chest radiograph 03/17/2016. TECHNIQUE: 2 views of the chest and 2 views of the ribs. FINDINGS: Bones: Normal. No fracture or bone lesion. Lungs: No focal opacities. No pneumothorax or pleural effusions. Mediastinum: Heart and mediastinal contours are unremarkable. Other: None. IMPRESSION: Please note that the low sensitivity for rib fractures on plain radiograph is further decreased by the selected views. Normal chest radiograph with no detected rib fracture. [facility]
== END 2017-12-07 12:24 | disposition home or self-care (01) ==
LOC: DI 12:23
PROVIDERS: ATTEND Internal Medicine
DX: R07.81 Pleurodynia (principal)
CPT/HCPCS: 71047

== ENCOUNTER 2018-04-13 16:45 | Outpatient (CLI) | payer MEDICARE, OTHER ==
--- NOTE | 2018-04-13 17:59 | CONSULTATION NOTE ---
Palliative Care Follow Up - Referral Referring Provider: Dr. Thomas Time of Visit: 0530-0439 Referral setting: Home (It is a taxing considerable effort for the patient leave the home related to his severe underlying dyspnea.) Referral Reason: Advanced COPD - Information Sources Records reviewed: Previous records reviewed History/Review of Systems obtained from: Patient, Family ( Petrona present for visit) Exam limitations: No limitations - History of Present Illness Update Brief HPI Update: This is a 67-year-old gentleman with advanced COPD, who is oxygen dependent, with severe functional Limitations related to his dyspnea on exertion. He does continue to have fluctuating status, with activity does need frequent rest periods can take 1-2 hours to get dressed and go through his daily routine. Currently is on 10 mg of prednisone a day, using his nebulizer about 1 time a day, as well as his inhalers on a fairly frequent basis. He does appear to have lost some weight, reports he weighed in today at 156. Does report some decrease in intake and early satiety, though denies any acute abdominal pain. He does report dark stools last week for 2 days, has had some increased intermittent abdominal discomfort related to gas. He has had more difficulty with constipation, using 1 capful of MiraLAX and 2 senna daily. Has had an exacerbation of his psoriasis, fluctuates as far as discomfort. Did have an episode of hypertension last week of up to 210/90 with headache, this is not recurred nor has it been frequent previously. Feels his depression though influenced by the weather is doing fairly well. Patient remains quite isolated, has a ronald dog that keeps him company while is working, and enjoys watching TV. Patient reports feeling quite comfortable in his sedentary lifestyle. Patient continues with fluctuating status with good and bad days, does get panic attacks which are resolved with his morphine 15 mg immediate relief, are often brought on by severe dyspneic episodes. He is using the morphine appropriately averaging about 2-3 times a day. Past medical history includes GI bleed, depression, anxiety, pneumonia, COPD exacerbations, osteoarthritis,psoriasis. Patient on exam has severely diminished breath sounds, no wheezing noted. Patient ambulated to the bathroom during visit, O2 sats on 3 L dropped to 89%, took about 4-5 minutes to recover to 93%, by end of the visit he was up to 98%. Abdomen soft nontender on exam no masses appreciated, and bowel tones normal. P atient uses Wrist blood pressure cuff did compare his reading is 144/77, auscultated at 132/64. Social History - Living Situation Living arrangement: At home Living Situation: With spouse/s.o. 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 Patient is home alone during the day, they do have a system worked out where she calls and checks on him regularly, at this point they do not feel I find is necessary. Patient is not had any significant symptoms that would trigger this for them currently. Did review and get [employer] with fall alert. is primary caregiver, patient is able to be independent in his ADLs, but most of the IADLs falls to . Medications/Allergies - Medications Home Medications: Ambulatory Orders Medication Instructions Recorded Confirmed Ipratropium/Albuterol [Combivent 2 puffs IH Q4H PRN 06/17/14 04/14/18 Respimat] Morphine Ir [Ms Ir] 15 mg PO Q4HR PRN 03/15/16 04/14/18 Sertraline [Zoloft] 75 mg PO DAILY 03/15/16 04/14/18 Budesonide [Pulmicort] 0.5 mg NEB DAILY 03/16/16 04/14/18 Valsartan/Hydrochlorothiazide 160.25 mg PO DAILY 03/16/16 04/14/18 [Diovan Hct 160-25 mg Tablet] predniSONE [Deltasone] 10 mg PO DAILYWM 03/16/16 04/14/18 traZODone [Desyrel] 50 mg PO HS 03/16/16 04/14/18 Albuterol Sulf [Ventolin Hfa 2 puffs INH Q4HR PRN 01/05/17 04/14/18 Inhaler] Dextromethorphan HBr [Tussin Cough] 10 ml PO Q4HR PRN 01/05/17 04/14/18 Esomeprazole Magnesium [Nexium] 40 mg PO DAILY 01/05/17 04/14/18 Ipratropium/Albuterol Sulfate 1 amp INH TID PRN 01/05/17 04/14/18 [Iprat-Albut 0.5-3(2.5) mg/3 ml] Polyethylene Glycol 3350 [Miralax] 17 gm PO DAILY PRN 01/05/17 04/14/18 Senna [Senokot] 17.2 gm PO BID PRN 01/05/17 04/14/18 Cetirizine [ZyrTEC] 10 mg PO DAILY 09/09/17 04/14/18 - Allergies Allergies/Adverse Reactions: Allergies Allergy/AdvReac Type Severity Reaction Status Date / Time codeine AdvReac Unknown Verified 04/01/16 13:16 Review of Systems - Constitutional Constitutional: reports: Fatigue, Weight loss. denies: Fever, Chills - Ears, Nose & Throat Ears, Nose & Throat: reports: Hearing loss (mild) - Cardiovascular Cardiovascular: reports: Exertional dyspnea, Decr. exercise tolerance. denies: Edema - Respiratory Respiratory: reports: SOB at rest, SOB with exertion - Gastrointestinal Gastrointestinal: reports: Bloating, Early satiety, Other ('dark stools' now resolved last week) - Genitourinary Genitourinary: reports: Urgency. denies: Incontinence - Musculoskeletal Musculoskeletal: reports: Muscle weakness (limited mostly by dyspnea) - Integumentary Integumentary: reports: Other (psoriasis scalp/neck area) - Neurological Neurological: reports: General weakness - Psychiatric Psychiatric: reports: Depression (currently controlled though some exacerbation with winter), Anxiety (panic attacks with severe dyspnea; often brought on by exertion) - Hematologic/Lymphatic Hematologic/Lymphatic: denies: Recurrent infections (no recent exacerbations) - All Other Systems All Other Systems: reports: Reviewed and negative Physical Exam - Vital Signs Temperature: 97.5 C Pulse Rate: 68 Respiratory Rate: 18 (at rest; 22 with conversation; 28 with exertion of ambulation) O2 Saturation: 93 (3 liters at rest see HPI) Blood Pressure: 132/64 - Physical Exam General Appearance: positive: No acute distress Eyes Bilateral: positive: Normal inspection ENT: positive: No signs of dehydration Neck: positive: No JVD, Trachea midline Cardiovascular: positive: Regular rate & rhythm Respiratory: positive: Diminished throughout. negative: Wheezes, Rales, Rhonchi Abdomen: positive: Non-tender, Soft, Nml bowel sounds, Distended Skin: positive: Dryness, Pruritis Extremities: positive: No pedal edema Neurologic/Psychiatric: positive: Oriented x3, Mood/affect nml Palliative Care - POLST Patient has POLST: Yes POLST Status: DNR, Selective Treatment Pain: Location (intermittent osteoarthritis in joints; mostly located great toes) Tiredness/Fatigue: Severe (7-10) Drowsiness/Sedation: Mild (1-3) Nausea: None Depression: Mild (1-3) Anxiety: Moderate (4-6) Dyspnea: Severe (7-10) Anorexia: Mild (1-3) Sleep: Sleeps well Constipation: Yes, Opoid induced, Intermittent constipation Feelings of wellbeing/Perceived Quality of Life: Fair, Acceptable, No change Performance Status: Patient independent in his own ADLs, but does take significant time and pacing to manage. He does desat and gets quite dyspneic with any kind of activity. He is doing some household tasks, including cooking. He does spend most of his days quite sedentary in his recliner. Who put him at a PPS of about 60% - Palliative Care Discussion: Patient remains quite pragmatic about his current situation, does not seem to be significantly depressed, does describe intermittent anxiety and panic attacks. Both he and his struggle with accommodating his limitations, he does remain quite isolated, they have little family support. Patient does have his YENI ST in place. His current quality of life is acceptable, has had somewhat of a slow decline with worsening activity tolerance and fluctuating good and bad days related to his dyspnea. He has had no acute illness, and goals remain to focus on quality of life. Impression and Recommendations - Palliative Care Impression: This is a feisty 67-year-old gentleman with severe advanced COPD, remains quite limited related to his dyspnea. Palliative care providing support for symptom management and anticipatory guidance. Recommendations/Counseling Done: 1. History of GI bleed. Patient has not had his hematocrit checked recently, did present last week with 2 days of darker stool. No amarilys bleeding. Patient to see PCP Dr. Thomas, in preparation for transition to new PCP. Encouraged to make appointment and most likely will have labs done at that point in time, if patient has recurrent dark stools instructed to make appointment more urgently. 2. Opioid induced Constipation. Patient currently taking MiraLAX and 2 senna, instructed to increase senna by 1-2 tabs in a.m. to even out peristalsis. 3. Advanced COPD. Patient with fluctuating status, is still finding morphine effective in managing his dyspnea, using appropriately 2-3 times a day. Prescription provided 180 tabs. Has had no acute exacerbations in the last few months. 4. Depression. Counseling provided regarding management of depression. Did discuss encouraging decreasing isolation, this is difficult giving his anxiety and dyspnea, encourage small trips. They are getting ready to go visit family in May. 5. Advanced care planning. Patient's PCP Dr. Thomas, retiring, Patient plan at this point to transition to Dr. Blake. Encouraged to set up appointment with Dr. thomas soon, to follow-up on labs, any further workup or intervention to be needed rather than start a new, and prep for transition. In agreement, will continue with palliative care will obtain referral from new provider. Time Spent: 40 minutes with greater than 50% of this done in counseling regarding dyspnea, depression, transition to new PCP, and anticipatory guidance
== END 2018-04-13 16:46 | disposition home or self-care (01) ==
LOC: PC 16:45
PROVIDERS: ATTEND Nurse Practitioner Adult Health
DX: Z51.5 Encounter for palliative care (principal); K59.03 Drug induced constipation; T40.2X5D Adverse effect of other opioids, subsequent encounter; J44.9 Chronic obstructive pulmonary disease, unspecified; F32.9 Major depressive disorder, single episode, unspecified; F41.0 Panic disorder [episodic paroxysmal anxiety]; I10 Essential (primary) hypertension; L40.9 Psoriasis, unspecified; Z99.81 Dependence on supplemental oxygen; Z79.52 Long term (current) use of systemic steroids; Z79.899 Other long term (current) drug therapy; Z79.891 Long term (current) use of opiate analgesic; Z79.51 Long term (current) use of inhaled steroids; Z66 Do not resuscitate; Z87.19 Personal history of other diseases of the digestive system
CPT/HCPCS: 99349

== ENCOUNTER 2018-04-21 10:03 | Outpatient (CLI) | payer MEDICARE, OTHER ==
[2018-04-21 10:28] LABS: BASOPHILS # (AUTO) 0.1 10^3/uL (0.0-0.1); BASOPHILS % (AUTO) 1.2 %; EOSINOPHILS # (AUTO) 0.6 10^3/uL (0.0-0.7); HGB - HEMOGLOBIN 13.4 g/dL (14.0-18.0); LYMPHOCYTES # (AUTO) 1.3 10^3/uL (1.5-3.5); LYMPHOCYTES % (AUTO) 12.8 %; MEAN CORPUSCULAR HEMOGLOBIN 29.6 pg (27.0-31.0); MEAN CORPUSCULAR HGB CONC 32.4 g/dL (32.0-36.0); MEAN CORPUSCULAR VOLUME 91.2 fL (80.0-94.0); MEAN PLATELET VOLUME 7.1 fL (7.4-11.4); MONOCYTES % (AUTO) 9.7 %; NEUTROPHILS # (AUTO) 7.1 10^3/uL (1.5-6.6); NEUTROPHILS % (AUTO) 70.3 %; PLT - PLATELET COUNT 297 10^3/uL (130-450); RED BLOOD COUNT 4.53 10^6/uL (4.70-6.10)
[2018-04-21 11:38] LABS: ALBUMIN 4.3 g/dL (3.2-5.5); ALBUMIN/GLOBULIN RATIO 1.5 (1.0-2.2); BILIRUBIN,TOTAL 0.7 mg/dL (0.2-1.0); CALCIUM 9.5 mg/dL (8.5-10.3); CREATININE 0.9 mg/dL (0.6-1.2); TOTAL PROTEIN 7.1 g/dL (6.7-8.2)
== END 2018-04-21 10:04 | disposition home or self-care (01) ==
LOC: LAB 10:03
PROVIDERS: ATTEND Internal Medicine
DX: I10 Essential (primary) hypertension (principal); Z79.899 Other long term (current) drug therapy; K92.2 Gastrointestinal hemorrhage, unspecified; J44.9 Chronic obstructive pulmonary disease, unspecified
CPT/HCPCS: 36415; 80053; 82728; 85025

== ENCOUNTER 2018-05-27 11:00 | Outpatient (CLI) | payer MEDICARE, OTHER ==
[2018-05-27 11:27] LABS: CALCIUM 9.8 mg/dL (8.5-10.3)
== END 2018-05-27 11:01 | disposition home or self-care (01) ==
LOC: LAB 11:00
PROVIDERS: ATTEND Internal Medicine
DX: Z79.899 Other long term (current) drug therapy (principal)
CPT/HCPCS: 36415; 80048

== ENCOUNTER 2018-05-31 15:30 | Outpatient (CLI) | payer MEDICARE, OTHER ==
--- NOTE | 2018-05-31 17:59 | CONSULTATION NOTE ---
Palliative Care Follow Up - Referral Referring Provider: Dr. Thomas Time of Visit: 8397-9120 Referral setting: Home (It is a taxing considerable effort for the patient to leave the home secondary to his dyspnea, plus to allow for family conferencing regarding transition plan as patient is moving 06/23) Referral Reason: Advanced COPD/Depression/Anxiety - Information Sources Records reviewed: Previous records reviewed History/Review of Systems obtained from: Patient, Family ( Petrona present for visit) Exam limitations: No limitations - History of Present Illness Update Brief HPI Update: This is a ronald 67-year-old gentleman who has been seen by Palliative Care since October 2015, for advanced COPD. Patient at that point in time had been evaluated for criteria for hospice, as he been having ongoing decline, increased dyspnea, and escalating panic attacks. Patient did stablize and continued on palliative care. Patient does not have any recent PFTs, had seen [facility] lead last 2015 but decided not to return given his poor prognosis. Over the last couple years, have enlisted the use of PRN morphine 15 mg for management of his dyspnea, have treated several exacerbations of COPD, has not been hospitalized for any pneumonias, but does remains severely limited functionally by his respiratory status. Patient did have one acute hospitalization for GI bleed in 2016, presented with a hematocrit of 20, does have a history of colon polyps, given his fragile health status no further work up was done, but continued to improve over time and no other signs or symptoms of bleeding. Patient that point in time was taking ibuprofen, aspirin, as well as his nightly nightcap. Focus of our care has been managing his anxiety, he is quite isolated, somewhat agoraphobic, and very much limited by his dyspnea. His anxiety is escalating with impending move. His fear is he is going to deteriorate, and this will i nitiate the beginning of the end for him. He has underlying depression, have titrated up his sertraline up to 75 mg with good results, use of light therapy, cognitive behavioral techniques, as well as supportive counseling. His other symptom burden continues to be insomnia, intermittent constipation related to opioid use, exacerbation of psoriasis, has had some weight loss but remains fairly stable around 150. His goals of care have been to focus on quality of life issues, he had wanted to take [employer], he has made it twice now. He is also been able to do some camping trips in his RV. The most of his life is quite limited to his home setting, and has had functional decline particular over the last couple months. This is mostly attributed to his limiting dyspnea, need for frequent rest periods, and triggered panic/anxiety attacks. His past medical history includes rotator cuff repair 2001, history of pneumonias, hypertension, GERD, BPH, spinal stenosis with history of steroid injections, increased PSA, and colonic polyps. And history of GI bleed. Social History - Living Situation Living arrangement: At home Living Situation: With spouse/s.o. Support System: Patient has 3 sons, who are not involved in his care. Petrona has 1 son, he is in [place], she is relocating there for job opportunities and to be closer to family. Patient is quite limited, does spend most the time at home in his recliner, they have a ronald new dog which keeps him company. She will be working full- time again, concern regarding community resources and support for transition. They have lived here on [facility] for several years, with goal was to retire here. Given patient's ongoing decline in health, Petrona's desire to be near grandsons and family support, decision has been made to move. Medications/Allergies - Medications Home Medications: Ambulatory Orders Medication Instructions Recorded Confirmed Ipratropium/Albuterol [Combivent 2 puffs IH Q4H PRN 06/17/14 05/31/18 Respimat] Morphine Ir [Ms Ir] 15 mg PO Q4HR PRN 03/15/16 05/31/18 Sertraline [Zoloft] 100 mg PO DAILY 03/15/16 05/31/18 Budesonide [Pulmicort] 0.5 mg NEB DAILY 03/16/16 05/31/18 Valsartan/Hydrochlorothiazide 160.25 mg PO DAILY 03/16/16 05/31/18 [Diovan Hct 160-25 mg Tablet] predniSONE [Deltasone] 10 mg PO DAILYWM 03/16/16 05/31/18 traZODone [Desyrel] 50 - 100 mg PO HS 03/16/16 05/31/18 Albuterol Sulf [Ventolin Hfa 2 puffs INH Q4HR PRN 01/05/17 05/31/18 Inhaler] Dextromethorphan HBr [Tussin Cough] 10 ml PO Q4HR PRN 01/05/17 05/31/18 Esomeprazole Magnesium [Nexium] 40 mg PO DAILY 01/05/17 05/31/18 Ipratropium/Albuterol Sulfate 1 amp INH TID PRN 01/05/17 05/31/18 [Iprat-Albut 0.5-3(2.5) mg/3 ml] Polyethylene Glycol 3350 [Miralax] 17 gm PO DAILY PRN 01/05/17 05/31/18 Senna [Senokot] 17.2 gm PO BID PRN 01/05/17 05/31/18 Cetirizine [ZyrTEC] 10 mg PO DAILY 09/09/17 05/31/18 - Allergies Allergies/Adverse Reactions: Allergies Allergy/AdvReac Type Severity Reaction Status Date / Time codeine AdvReac Unknown Verified 04/01/16 13:16 Review of Systems - Constitutional Constitutional: reports: Fatigue, Weight stable (150-155; though appears with muscle wasting), Other (continues nightly drink;). denies: Fever, Chills - Cardiovascular Cardiovascular: reports: Exertional dyspnea, Decr. exercise tolerance. denies: Chest pain, Edema - Respiratory Respiratory: reports: SOB at rest (at times; worsening with increasing anxiety;), SOB with exertion. denies: Cough, Sputum production - Gastrointestinal Gastrointestinal: reports: Abdominal pain (intermittent "discomfort" has been more pronounced with K+; H & H stable), Reflux/heartburn (occasional), Bloating (increase gas), Good appetite. denies: Constipation - Genitourinary Genitourinary: reports: Urgency - Musculoskeletal Musculoskeletal: reports: Stiffness, Muscle weakness, Joint pain (no longer able to take ibuprofen; intermittent achiness with change in weather). denies: Assistive devices - Integumentary Integumentary: reports: Dryness, Other (hx of psorasis;) - Neurological Neurological: reports: General weakness. denies: Headache - Psychiatric Psychiatric: reports: Depression, Anxiety (worsening with pending move) - Hematologic/Lymphatic Hematologic/Lymphatic: denies: Anemia, Recurrent infections - All Other Systems All Other Systems: reports: Reviewed and negative Physical Exam - Vital Signs Temperature: 97.2 C Pulse Rate: 78 Respiratory Rate: 18 O2 Saturation: 98 (on 3.5 liters; after amb 96% 30 ft) Blood Pressure: 122/58 - Physical Exam General Appearance: positive: No acute distress, Alert, Anxious Eyes Bilateral: positive: Normal inspection ENT: positive: No signs of dehydration, Other (poor dentition) Neck: positive: No JVD, Trachea midline Cardiovascular: positive: Regular rate & rhythm Respiratory: positive: Diminished throughout, Other. negative: Wheezes, Rales, Rhonchi Abdomen: positive: Non-tender, Soft, Nml bowel sounds Skin: positive: Pallor, Dryness Extremities: positive: No pedal edema Neurologic/Psychiatric: positive: Oriented x3, Weakness, Depressed mood/affect Palliative Care - POLST Patient has POLST: Yes POLST Status: DNR, Selective Treatment (Patient does have a YENI ST signed by his primary care provider Dr. Mat thomas on 08/07/14. These goals were revisited multiple times he is a DNA R/allow natural and limited interventions. This reflects weighing benefits and burdens of treatments as they come up, but does accept hospitalization with avoidance of intensive care and no intubation. At this point in time would still accept antibiotics for life it could be could be prolonged, as well as no medically assisted nutrition by tube.) Pain: Pain unchanged, Location (generalized osteoarthritic pain; not acute; fluctuates with weather) Tiredness/Fatigue: Moderate (4-6) Drowsiness/Sedation: Mild (1-3) Nausea: None Depression: Moderate (4-6) Anxiety: Severe (7-10) (exacerbated with pending move) Dyspnea: Severe (7-10) Anorexia: None Sleep: Variable sleep pattern (worsening these last few weeks; anxiety impacting) Constipation: Yes, Opoid induced, Managed Feelings of wellbeing/Perceived Quality of Life: Fair, Acceptable, Worsening Performance Status: Patient is ambulatory within the house, does need frequent rest periods. He does premedicate with morphine prior to shower and activity, this allows him to be independent. He does assist with meals, pacing his activities. He has been very frustrated as he has been unable to help with packing and moving things. Patient is quite sedentary, this is due to his activity intolerance, does spend most the time in the recliner watching TV, is quite socially isolated other than his . He does sometimes accompany her her on errands, depending on his tolerance, will stay in the car or go for short periods - Palliative Care Discussion: Patient presents with exacerbation of his anxiety and depression, this move is mostly of his 's doing. This is caused some tension between them, as well as guilt on the part of his . Though it does make sense to be where there is more family support as patient is expected to decline. There have been many hiccups so far in the move which has made it more difficult emotionally as well. At this point in time the plan is to have her son help them and they would be arriving on 06/27 but will need to stay in an Air B&B for 2 months. This is made it more difficult as far as needing to relocate a couple times. The patient's other high anxiety is about transitioning to another care system, reassured had made contact with [facility] (Petrona's new job is at [employer]) and with [facility], though they do not do palliative care they have a CARES visit to assist with community resources and making connections. Permission provided to move forward on both of these. Will have them contact Petrona at [phone] as soon as possible to get established. Results - Lab Results Lab results reviewed: Yes Lab and Imaging Results: Last H&H done on 04/21 3.4 hemoglobin 41.3 hematocrit; last BMP 4.4 potassium, sodium 137, glucose 136, GFR 74 on 05/27 Impression and Recommendations - Palliative Care Impression: This is a feisty 67-year-old gentleman with severe advanced COPD, remains quite limited with poor activity tolerance and severe dyspnea, and now with pending move exacerbated anxiety and depression. Palliative care to contact services for transition and new setting for symptom management and ongoing anticipatory guidance. Recommendations/Counseling Done: 1. Dyspnea secondary to severe advanced COPD. Encouraged to contact [facility] to facilitate oxygen transition, will take concentrator and tanks. Patient continues to use the morphine sulfate 15 mg 2-3 times a day, using appropriately to manage dyspnea and activity intolerance. Prescription provided. 3. Opioid-induced constipation. Patient titrates MiraLAX and senna in response appropriately. 4. Anxiety exacerbation. Counseling provided regarding transition resources, will go ahead and increase sertraline 100 mg daily, In-depth discussion regarding concerns and worries. 5. Advanced care planning. Patient will need to establish with new PC P/palliative care services. Patient does have a YENI ST in place, instructed may need to get new form as these are state specific. Patient goals remain to focus on quality of life recognizing quantity is limited. Patient is concerned regarding possible deterioration of health, supportive counseling provided Time Spent: 45 minutes with greater than 50% of this done in counseling regarding symptoms, management of anxiety and depression secondary exacerbation, up prescriptions provided in the context of transitioning, and anticipatory guidance given. Will send referral with permission to [facility] palliative [facility] as well as [facility] palliative care service.
== END 2018-05-31 15:31 | disposition home or self-care (01) ==
LOC: PC 15:30
PROVIDERS: ATTEND Nurse Practitioner Adult Health
DX: Z51.5 Encounter for palliative care (principal); J44.9 Chronic obstructive pulmonary disease, unspecified; F32.9 Major depressive disorder, single episode, unspecified; F41.0 Panic disorder [episodic paroxysmal anxiety]; D64.9 Anemia, unspecified; G47.00 Insomnia, unspecified; K59.03 Drug induced constipation; T40.2X5A Adverse effect of other opioids, initial encounter; Z66 Do not resuscitate; Z79.51 Long term (current) use of inhaled steroids; Z79.891 Long term (current) use of opiate analgesic; Z79.52 Long term (current) use of systemic steroids; Z87.01 Personal history of pneumonia (recurrent)
CPT/HCPCS: 99349